=== PATIENT | female | born 1990 | race Caucasian/White ===

== ENCOUNTER 2017-12-12 17:25 | Emergency (ER) | payer OTHER, MEDICAID ==
[~2017-12-12] VITALS: Ht 170.2 cm; Wt 90.7 kg
[2017-12-12] MEDS ORDERED: TESSALON PERLE100 MG PO (17:49)
[2017-12-12] MEDS ORDERED: [UNRECOGNIZED DRUG - REMARK] NASAL (17:49)
[2017-12-12] MEDS ORDERED: VENTOLIN HFA 1818 GM INH (17:59)
[2017-12-12] MEDS ORDERED: PREDNISONE 10 M10 MG PO (17:59)
[2017-12-12] MEDS ORDERED: GUAIFENESIN-PS1 EACH PO (17:59)
[2017-12-12 18:12] VITALS: BP 144/100
== END 2017-12-12 18:13 | disposition home or self-care (01) ==
LOC: M.ERS 17:25
DX: J10.1 Influenza due to other identified influenza virus with other respiratory manifestations (principal); T37.5X5A Adverse effect of antiviral drugs, initial encounter; Y92.89 Other specified places as the place of occurrence of the external cause

== ENCOUNTER 2019-06-26 04:20 | Emergency (ER) | payer OTHER, MEDICAID ==
[~2019-06-26] VITALS: Ht 167.6 cm; Wt 90.7 kg
[~2019-06-26 04:20] MED LIST: GUAIFENESIN-PS1 EACH PO; PREDNISONE 10 M10 MG PO; TESSALON PERLE100 MG PO; VENTOLIN HFA 1818 GM INH; [UNRECOGNIZED DRUG - REMARK] NASAL
[2019-06-26] MEDS ORDERED: BIRTH CONTROL (04:32)
[2019-06-26 05:00] LABS: ABSOLUTE BASOPHILS 0.1 thou/uL (0.0-0.2); ABSOLUTE EOSINOPHILS 0.1 thou/uL (0.0-0.7); ABSOLUTE MONOCYTES 0.3 thou/uL (0.0-1.2); ABSOLUTE NEUTROPHILS 6.5 thou/uL (1.6-8.1); BASOPHILS 0.8 %; EOSINOPHILS 0.7 %; HEMATOCRIT 43.6 % (37.0-47.0); HEMOGLOBIN 14.1 gm/dL (12.0-15.0); MCH 28.8 pg (26.0-34.0); MCHC 32.4 g/dL (28.0-37.0); MCV 88.9 fL (80.0-100.0); MONOCYTES 3.8 %; MPV 9.8 fl. (7.2-11.1); NUCLEATED RBCS 0 /100WBC; PLATELET COUNT* 246 thou/uL (150-400); POLYS 72.7 %; RBC 4.91 mil/uL (4.20-5.00); RDW-CV 12.9 % (10.5-14.5); WBC 8.9 thou/uL (4.0-11.0)
[2019-06-26 05:02] LABS: URINE BILIRUBIN NEGATIVE (Negative); URINE BLOOD TRACE (Negative); URINE CLARITY CLEAR; URINE COLOR YELLOW; URINE GLUCOSE-RANDOM NEGATIVE (Negative); URINE KETONES NEGATIVE (Negative); URINE LEUKOCYTES-REFLEX NEGATIVE (Negative); URINE NITRITE-REFLEX NEGATIVE (Negative); URINE PROTEIN NEGATIVE (Negative); URINE SPECIFIC GRAVITY >= 1.030 (1.005-1.030); URINE UROBILINOGEN 0.2 E.U./dl (0.2-1.0)
[2019-06-26 05:12] LABS: ALBUMIN 3.3 g/dL (3.4-5.0); CALCIUM 8.2 mg/dL (8.5-10.1); CREATININE 0.8 mg/dL (0.6-1.3); POTASSIUM 3.7 mmol/L (3.5-5.1); TOTAL BILIRUBIN 0.1 mg/dL (<0.1-1.0); TOTAL PROTEIN 6.9 g/dL (6.4-8.2)
[2019-06-26] MEDS ORDERED: FLAGYL500 M1 PO (06:21)
[2019-06-26] MEDS ORDERED: ZOFRAN ODT4 MG PO (06:21)
[2019-06-26] MEDS ORDERED: NORCO 5-325 TA1 EAC1 PO (06:21)
[2019-06-26 06:30] VITALS: BP 121/70
== END 2019-06-26 06:31 | disposition home or self-care (01) ==
LOC: M.ERS 04:20
PROVIDERS: Personal Emergency Response Attendant
DX: K80.50 Calculus of bile duct without cholangitis or cholecystitis without obstruction (principal); R11.2 Nausea with vomiting, unspecified; Z88.0 Allergy status to penicillin